=== PATIENT | female | born 1960 | race Caucasian/White ===

== ENCOUNTER 2016-05-23 19:49 | Emergency (ER) | payer OTHER ==
[2016-05-23 19:54] VITALS: TEMP 98.1
[2016-05-23] MEDS ORDERED: methylPREDNISolone SOD SUCC 125 MG/2 ML VIAL ONE (20:05)
[2016-05-23] MEDS ORDERED: FAMOTIDINE 20 MG/2 ML SDV ONE (20:15)
[2016-05-23] MEDS ORDERED: NS 50 ML BAG IV ONE (20:16)
[2016-05-23] MEDS ORDERED: FAMOTIDINE 20 MG/2 ML SDV IVP ONE (20:20)
[2016-05-23] MEDS ORDERED: methylPREDNISolone SOD SUCC 125 MG/2 ML VIAL IVP ONE (20:20)
[2016-05-23 20:44] VITALS: RESP 16
--- NOTE | 2016-05-23 21:19 | EDPHY ---
H & P Stated Complaint: allergic rx, hives, chest tight Time Seen by Provider: 05/23/16 20:10 HPI/ROS: Chief complaint: Allergic reaction HPI: Patient was out to dinner aat a [place] restaurant this evening when she had the onset of diffuse itching has some shortness of breath. She has a history of allergy to seafood but was eating a chicken burrito. She may been exposed from some seafood through the kitchen. She states normally she gets gastrointestinal symptoms which she seafood ago. She did take some Benadryl but symptoms have persisted. No fevers or chills. No other known exposures. No nausea or vomiting. No chest pain. Some mild shortness of breath but does not feel like her throat is swelling. No cough ROS: 10 point Review of Systems is negative except as noted in the HPI. Allergies: No known drug allergies Physical exam: Gen: Awake, Alert, No Distress HEENT: Nose: no rhinorrhea Eyes: PERRLA, EOMI Mouth: Moist mucosa Neck: Supple, no JVD Chest: nontender, lungs clear to auscultation Heart: S1, S2 normal, no murmur Abd: Soft, non-tender, no guarding Back: no CVA tenderness, no midline tenderness Ext: no edema, non-tender Skin: Diffuse urticarial an erythematous rash Neuro: CN II-XII intact, Sensation grossly intact, Strength 5/5 in bilateral upper and lower extremities - Personal History Current Tetanus/Diphtheria Vaccine: Unsure Current Tetanus Diphtheria and Acellular Pertussis (TDAP): Unsure Tetanus Vaccine Date: 2008 - Medical/Surgical History Hx Asthma: Yes Hx Chronic Respiratory Disease: Yes Hx Diabetes: No Hx Cardiac Disease: No Hx Renal Disease: No Hx Cirrhosis: No Hx Alcoholism: No Hx HIV/AIDS: No Hx Splenectomy or Spleen Trauma: No Other PMH: asthma - Social History Smoking Status: Never smoked Constitutional: Initial Vital Signs Temperature (C) 36.7 C 05/23/16 19:52 Heart Rate 91 05/23/16 19:52 Respiratory Rate 18 05/23/16 19:52 O2 Sat (%) 94 05/23/16 19:52 O2 Delivery Mode Room Air Allergies/Adverse Reactions: No Known Allergies Allergy (Verified 12/31/15 15:24) Home Medications: Medication Instructions Recorded Albuterol Sulf 07/28/09 ALVESCO 12/31/15 Atorvastatin Calcium 12/31/15 Azelastine 12/31/15 FEMRING 12/31/15 Omeprazole 12/31/15 Progesterone 12/31/15 predniSONE 60 mg PO DAILY #9 tab 05/23/16 Medical Decision Making ED Course/Re-evaluation: Patient is feeling significantly improved having received Solu-Medrol, Pepcid and her initial diphenhydramine. Will discharge her on a prednisone pack. Will continue Benadryl as needed. She will follow up with primary care physician on Wednesday. If symptoms worsen to return immediately to the emergency department. - Data Points Medications Given: Discontinued Medications Famotidine (Pepcid) 40 mg IVP EDNOW ONE Stop: 05/23/16 20:21 Last Admin: 05/23/16 20:20 Dose: 40 mg Methylprednisolone Sodium Succinate (Solu-Medrol) 125 mg IVP EDNOW ONE Stop: 05/23/16 20:21 Last Admin: 05/23/16 20:20 Dose: 125 mg Departure - Departure Disposition: Home, Routine, Self-Care Clinical Impression: Allergic reaction Condition: Good Instructions: General Allergic Reaction (ED) Additional Instructions: Take the full course of prednisone over the next 3 days. He may take Benadryl as needed [id number]. Return emergency depart for increasing rash, itching, shortness of breath, fevers, chills, or any other concerns. Follow up with primary care physician on Wednesday. Referrals: Maxine Branch MD [Primary Care Provider] - As per Instructions Prescriptions: predniSONE 60 mg PO DAILY #9 tab
[2016-05-23 21:34] VITALS: BP 109/61; PULSE 88; O2SAT 95
== END 2016-05-23 21:32 | disposition home or self-care (01) ==
DX: T78.40XA Allergy, unspecified, initial encounter (principal); J45.909 Unspecified asthma, uncomplicated
CPT/HCPCS: 96374; J1200

== ENCOUNTER → 2016-06-22 | Outpatient (CLI) | payer OTHER | LOC: FIMAGING 08:44 | DX: Z12.31 Encounter for screening mammogram for malignant neoplasm of breast (principal); Z80.3 Family history of malignant neoplasm of breast | CPT/HCPCS: G0202 ==

== ENCOUNTER → 2017-03-18 | Outpatient (CLI) | payer OTHER | LOC: FIMAGING 16:19 | PROVIDERS: ATTEND Family Medicine | DX: K59.00 Constipation, unspecified (principal); M51.37 Other intervertebral disc degeneration, lumbosacral region ==

== ENCOUNTER → 2017-07-05 | Outpatient (CLI) | payer OTHER | LOC: FIMAGING 09:02 | PROVIDERS: ATTEND Obstetrics & Gynecology | DX: Z12.31 Encounter for screening mammogram for malignant neoplasm of breast (principal); Z80.3 Family history of malignant neoplasm of breast ==

== ENCOUNTER → 2018-07-06 | Outpatient (CLI) | payer OTHER | LOC: FIMAGING 12:07 | PROVIDERS: ATTEND Obstetrics & Gynecology | DX: Z12.31 Encounter for screening mammogram for malignant neoplasm of breast (principal); Z80.3 Family history of malignant neoplasm of breast ==

== ENCOUNTER 2018-08-23 12:37 | Emergency (ER) | payer OTHER | END 2018-08-23 13:31 | disposition home or self-care (01) ==

== ENCOUNTER 2018-08-25 12:42 | Observation (INO) | payer OTHER | END 2018-08-26 10:13 | disposition home or self-care (01) | LOC: F3N 17:01 ==

== ENCOUNTER → 2018-08-25 | Outpatient (CLI) | payer OTHER | LOC: FIMAGING 09:41 ==